=== PATIENT | male | born 1975 | race Two or more races ===

== ENCOUNTER 2017-02-11 18:00 | Emergency (ER) | payer SELFPAY ==
[~2017-02-11] VITALS: Ht 172.7 cm; Wt 93.0 kg
[2017-02-11 18:20] VITALS: BP 143/79
[2017-02-11] MEDS ORDERED: HYDROcodone/APAP 5/325MG 1 TAB TABLET PO ONE (18:30)
--- NOTE | 2017-02-11 19:20 | PHYS DOC ---
Past Medical History Past Medical History: No Pertinent History Past Surgical History: Knee Replacement Alcohol Use: None Drug Use: None Adult General Chief Complaint Chief Complaint: KNEE INJURY HPI HPI Patient is a 41 year old male presents the ED complaining of slip and fall times one day ago. Patient states he slipped and fell and landed on his left knee. Discussed pain as sharp. Rates the pain as 7 out of 10. Denies head/neck injury, LOC, vision changes, nausea/vomiting, symptoms prior to fall, chest pain or shortness of breath. Review of Systems Review of Systems Constitutional: Denies fever or chills [] Eyes: Denies change in visual acuity, redness, or eye pain [] HENT: Denies nasal congestion or sore throat [] Respiratory: Denies cough or shortness of breath [] Cardiovascular: No additional information not addressed in HPI [] GI: Denies abdominal pain, nausea, vomiting, bloody stools or diarrhea [] : Denies dysuria or hematuria [] Musculoskeletal: Complains of knee pain. Denies back pain. [] Integument: Denies rash or skin lesions [] Neurologic: Denies headache, focal weakness or sensory changes [] Endocrine: Denies polyuria or polydipsia [] All other systems were reviewed and found to be within normal limits, except as documented in this note. Current Medications Current Medications Current Medications Medications (Trade) Dose Ordered Sig/Idris Start Time Stop Time Status Last Admin Dose Admin Acetaminophen/ Hydrocodone Bitart (Lortab 5/325) 1 tab 1X ONCE 02/11/17 18:30 02/11/17 18:31 DC 02/11/17 19:13 1 TAB Allergies Allergies Allergies Coded Allergies Type Severity Reaction Last Updated Verified No Known Drug Allergies 02/11/17 No Physical Exam Physical Exam Constitutional: Well developed, well nourished, no acute distress, non-toxic appearance. [] HENT: Normocephalic, atraumatic, oropharynx moist Neck: Normal range of motion, no tenderness, supple, no stridor. [] Skin: Warm, dry, no erythema, no rash. [] Back: No tenderness, no CVA tenderness. [] Extremities: MILD LEFT KNEE TENDERNESS. NO SWELLING OR OVERLYING SKIN CHANGES, no cyanosis, no clubbing, ROM intact, no edema. [] Neurologic: Alert and oriented X 3, normal motor function, normal sensory function, no focal deficits noted. [] Psychologic: Affect normal, judgement normal, mood normal. [] Current Patient Data Vital Signs Vital Signs Date Time Temp Pulse Resp B/P (MAP) Pulse Ox O2 Delivery O2 Flow Rate FiO2 02/11/17 18:20 98.1 69 16 97 Room Air 98.1 EKG EKG [] Radiology/Procedures Radiology/Procedures PROCEDURE: KNEE LEFT 3V KNEE 3 VIEWS LEFT Clinical Indication: injury Comparison: None. Findings: There is no acute fracture or dislocation. The tricompartmental joint spaces are maintained. The patella is in anatomic position. Moderate quadriceps patellar enthesophyte. There is no soft tissue abnormality. There is no joint effusion. IMPRESSION: No acute fracture. [] Course & Med Decision Making Course & Med Decision Making Pertinent Labs and Imaging studies reviewed. (See chart for details) Discussed imaging findings with patient. Knee immobilizer placed. Neurovascular intact post placement. Crutches given. Discussed follow-up with orthopedics early next week. Provided contact information/education. Discussed reasons to return to the ED. Patient understands and agrees with plan. Dragon Disclaimer Dragon Disclaimer This electronic medical record was generated, in whole or in part, using a voice recognition dictation system. Departure Departure Impression: Primary Impression: Knee injury Disposition: HOME, SELF-CARE Condition: IMPROVED Referrals: NO PCP (PCP) AZUCENA TIJERINA II, MD Patient Instructions: Knee - Cartilage (Meniscus) Injury, Knee Sprain Scripts Tramadol Hcl (TRAMADOL HCL) 50 Mg Tablet 1 TAB PO PRN Q6HRS, #12 TAB Prov: KORIN DUFF 02/11/17 KORIN DUFF Feb 11, 2017 19:20
[2017-02-11] MEDS ORDERED: TRAM50TA PO (19:35)
--- NOTE | 2017-02-12 09:11 | RAD ---
KNEE 3 VIEWS LEFT Clinical Indication: injury Comparison: None. Findings: There is no acute fracture or dislocation. The tricompartmental joint spaces are maintained. The patella is in anatomic position. Moderate quadriceps patellar enthesophyte. There is no soft tissue abnormality. There is no joint effusion. IMPRESSION: No acute fracture.
== END 2017-02-11 19:49 | disposition home or self-care (01) ==
LOC: ER 18:00
DX: S89.92XA Unspecified injury of left lower leg, initial encounter (principal); Z96.659 Presence of unspecified artificial knee joint; W01.0XXA Fall on same level from slipping, tripping and stumbling without subsequent striking against object, initial encounter; Y93.89 Activity, other specified; Y92.89 Other specified places as the place of occurrence of the external cause; Y99.8 Other external cause status
CPT/HCPCS: 29505; 73562; 99284

== ENCOUNTER 2018-08-18 22:36 | Emergency (ER) | payer SELFPAY ==
[~2018-08-18] VITALS: Ht 165.1 cm; Wt 99.6 kg
[~2018-08-18 22:36] MED LIST: TRAM50TA PO
--- NOTE | 2018-08-19 00:43 | PHYS DOC ---
Past Medical History Past Medical History: No Pertinent History Past Surgical History: Other Additional Past Surgical Histo: RIGHT KNEE SURGERY Alcohol Use: Occasionally Drug Use: None Adult General Chief Complaint Chief Complaint: DIFFICULTY SWALLOWING HPI HPI Patient is a 42 year old [f__sex] who presents with [] Review of Systems Review of Systems Constitutional: Denies fever or chills [] Eyes: Denies change in visual acuity, redness, or eye pain [] HENT: Denies nasal congestion or sore throat [] Respiratory: Denies cough or shortness of breath [] Cardiovascular: No additional information not addressed in HPI [] GI: Denies abdominal pain, nausea, vomiting, bloody stools or diarrhea [] : Denies dysuria or hematuria [] Musculoskeletal: Denies back pain or joint pain [] Integument: Denies rash or skin lesions [] Neurologic: Denies headache, focal weakness or sensory changes [] Endocrine: Denies polyuria or polydipsia [] All other systems were reviewed and found to be within normal limits, except as documented in this note. Current Medications Current Medications Current Medications Medications (Trade) Dose Ordered Sig/Idris Start Time Stop Time Status Last Admin Dose Admin Dexamethasone (Decadron) 10 mg 1X ONCE 08/19/18 01:00 08/19/18 01:01 DC 08/19/18 01:05 10 MG Allergies Allergies Allergies Coded Allergies Type Severity Reaction Last Updated Verified No Known Drug Allergies 02/11/17 No Physical Exam Physical Exam Constitutional: Well developed, well nourished, no acute distress, non-toxic appearance. [] HENT: Normocephalic, atraumatic, bilateral external ears normal, oropharynx moist, no oral exudates, nose normal. [] Eyes: PERRLA, EOMI, conjunctiva normal, no discharge. [] Neck: Normal range of motion, no tenderness, supple, no stridor. [] Cardiovascular:Heart rate regular rhythm, no murmur [] Lungs & Thorax: Bilateral breath sounds clear to auscultation [] Abdomen: Bowel sounds normal, soft, no tenderness, no masses, no pulsatile masses. [] Skin: Warm, dry, no erythema, no rash. [] Back: No tenderness, no CVA tenderness. [] Extremities: No tenderness, no cyanosis, no clubbing, ROM intact, no edema. [] Neurologic: Alert and oriented X 3, normal motor function, normal sensory function, no focal deficits noted. [] Psychologic: Affect normal, judgement normal, mood normal. [] Current Patient Data Vital Signs Vital Signs Date Time Temp Pulse Resp B/P (MAP) Pulse Ox O2 Delivery O2 Flow Rate FiO2 08/18/18 23:18 97.9 71 16 118/96 (103) 90 Room Air 97.9 EKG EKG [] Radiology/Procedures Radiology/Procedures [] Course & Med Decision Making Course & Med Decision Making Pertinent Labs and Imaging studies reviewed. (See chart for details) [] Dragon Disclaimer Dragon Disclaimer This electronic medical record was generated, in whole or in part, using a voice recognition dictation system. Departure Departure Referrals: NO PCP (PCP) HANANE LLAMAS DO Aug 19, 2018 00:43
--- NOTE | 2018-08-19 00:47 | PHYS DOC ---
Past Medical History Past Medical History: No Pertinent History Past Surgical History: Other Additional Past Surgical Histo: RIGHT KNEE SURGERY Alcohol Use: Occasionally Drug Use: None Adult General Chief Complaint Chief Complaint: DIFFICULTY SWALLOWING HPI HPI Patient is a 42 year old male with no significant past medical history who presents with dysphagia, throat tightness, and difficult breathing. The patient states this began while drinking beer approximately 2 hours ago. He states he began to sweat, became dizzy and then like his throat was tightening up. He is concerned the symptoms may be due to a spider bite he suffered 2 weeks ago while in [facility]. He states similar symptoms occurred at the time of the spider bite, but resolved after about 2 days. He admits to night fevers and cramping in his left leg intermittently since the spider bite. He denies any nausea, vomiting, fever or chills. Review of Systems Review of Systems Constitutional: Denies fever or chills Eyes: Denies redness or eye pain HENT: throat tightness, resolved, difficulty swallowing. Respiratory: Denies cough or shortness of breath Cardiovascular: Denies chest pain or palpitations GI: Denies abdominal pain, nausea, or vomiting : Denies dysuria or hematuria Musculoskeletal: Denies back pain or joint pain Integument: Denies rash or skin lesions Neurologic: Denies headache, focal weakness or sensory changes Complete systems were reviewed and found to be within normal limits, except as documented in this note. Current Medications Current Medications Current Medications Medications (Trade) Dose Ordered Sig/Idris Start Time Stop Time Status Last Admin Dose Admin Dexamethasone (Decadron) 10 mg 1X ONCE 08/19/18 01:00 08/19/18 01:01 DC 08/19/18 01:05 10 MG Allergies Allergies Allergies Coded Allergies Type Severity Reaction Last Updated Verified No Known Drug Allergies 02/11/17 No Physical Exam Physical Exam Constitutional: Well developed, well nourished, no acute distress, non-toxic appearance HENT: Normocephalic, atraumatic, oropharynx moist Eyes: PERRL, EOMI, conjunctiva normal, no discharge Neck: Normal range of motion, no tenderness, supple Cardiovascular: Heart rate normal, regular rhythm Lungs & Thorax: Bilateral breath sounds clear to auscultation, no wheezing Abdomen: Soft, no tenderness Skin: Warm, dry, no erythema, no rash Back: No tenderness, no CVA tenderness Extremities: No tenderness, ROM intact, no edema Neurologic: Alert and oriented X 3, normal motor function, normal sensory function, no focal deficits noted Psychologic: Affect normal, judgement normal, mood normal Current Patient Data Vital Signs Vital Signs Date Time Temp Pulse Resp B/P (MAP) Pulse Ox O2 Delivery O2 Flow Rate FiO2 08/19/18 01:35 97.9 78 16 118/87 (97) 97 Room Air 97.9 EKG EKG [] Radiology/Procedures Radiology/Procedures [] Course & Med Decision Making Course & Med Decision Making Patient is a 42-year-old male who presents with sudden onset throat tightness with associated difficulty breathing and swallowing that began while drinking beer approximately 1 hour prior to arrival. Patient's O2 sat's stable 2 L oxygen per nasal cannula shortly after arrival, and remained stable after removal of nasal cannula. On exam the patient exhibits no wheezing of lungs. No masses appreciated in the thyroid or oropharynx. The patient is completely asymptomatic at this time. Due to patient's stability, imaging was deemed unnecessary. Steroids administered to decrease inflammation due to possible allergic reacti on. Patient counseled to return if symptoms worsen acutely. Patient stable for discharge with outpatient follow-up with PCP. Discussed findings and plan with patient and family, who acknowledge understanding and agreement. Dragon Disclaimer Dragon Disclaimer This electronic medical record was generated, in whole or in part, using a voice recognition dictation system. Departure Departure Impression: Primary Impression: Allergic reaction Disposition: 01 HOME, SELF-CARE Condition: STABLE Referrals: NO PCP (PCP) Patient Instructions: Drug Allergy, [id number], Food Allergy, [id number] Scripts Prednisone (PREDNISONE) 20 Mg Tablet 2 TAB PO DAILY, #8 TAB Prov: HANANE LLAMAS DO 08/19/18 Problem Qualifiers Primary Impression: Allergic reaction Encounter type: initial encounter Qualified Codes: T78.40XA - Allergy, unspecified, initial encounter HANANE LLAMAS DO Aug 19, 2018 00:47
[2018-08-19] MEDS ORDERED: DEXAMETHASONE 4 MG TABLET PO ONE (01:00)
[2018-08-19] MEDS ORDERED: PRED20TA PO (01:26)
[2018-08-19 01:35] VITALS: BP 118/87
== END 2018-08-19 01:30 | disposition home or self-care (01) ==
LOC: ER 22:36
DX: T78.40XA Allergy, unspecified, initial encounter (principal); R10.13 Epigastric pain; R06.00 Dyspnea, unspecified; R42 Dizziness and giddiness; X58.XXXA Exposure to other specified factors, initial encounter
CPT/HCPCS: 99283; J8540

== ENCOUNTER → 2018-11-05 | Outpatient (CLI) | payer OTHER ==
[~2018-11-05] MED LIST changes: +PRED20TA PO
--- NOTE | 2018-11-05 16:38 | RAD ---
MR of the left knee HISTORY: Left knee pain. TECHNIQUE: Routine multiplanar sequences are obtained. FINDINGS: Mild motion degradation. Tear at the posterior root attachment of the medial meniscus. Additional inferior surface tearing of the posterior horn of the medial meniscus. Moderate medial meniscal subluxation. No evidence of lateral meniscal tear. Anterior and posterior cruciate ligaments are intact. Medial collateral ligament is intact. Iliotibial band unremarkable. Fibular collateral ligament, biceps femoris tendon and popliteus tendon are intact. Extensor mechanism demonstrates mild distal thickening without acute tear. Small joint effusion. No evidence of intra-articular loose body. Severe chondromalacia at the femoral trochlea greater inferiorly. Chondromalacia of the patella with areas of severe cartilage loss. Severe cartilage loss at the medial joint compartment with subchondral edema and cysts. Mild lateral compartment degenerative change. No acute fracture. No aggressive bone destruction. No significant Francis's cyst. IMPRESSION: 1. Medial meniscal tear. 2. Severe DJD. Electronically signed by: Cayden Lange MD (11/05/2018 4:35 PM) [facility]
== END | disposition home or self-care (01) ==
LOC: MRI 14:34
PROVIDERS: ATTEND Physician Assistant Medical
DX: S83.242A Other tear of medial meniscus, current injury, left knee, initial encounter (principal); M22.42 Chondromalacia patellae, left knee; M17.12 Unilateral primary osteoarthritis, left knee; X58.XXXA Exposure to other specified factors, initial encounter; Y93.89 Activity, other specified; Y92.89 Other specified places as the place of occurrence of the external cause; Y99.8 Other external cause status
CPT/HCPCS: 73721